=== PATIENT | female | born 1945 | race Caucasian/White ===

== ENCOUNTER 2017-08-18 15:12 | Inpatient (IN) | payer MEDICARE, OTHER ==
[~2017-08-18] VITALS: Ht 157.5 cm; Wt 66.4 kg
[~2017-08-18 15:12] MED LIST: ACYC-202 PO; BUPR150T26 PO; DULO-31 PO; META-25 PO; OMEP-84 PO; OXYC10TA47 PO; ZOLP5TAB8 PO
[2017-08-18] MEDS ORDERED: morphine 4 MG/ML inj SYRINge IM ONE (15:30)
[2017-08-18] MEDS ORDERED: morphine 4 MG/ML inj SYRINge IV ONE (16:35)
[2017-08-18] MEDS ORDERED: potassium Cl 20 mEq SR tablet PO PRN (16:45)
[2017-08-18] MEDS ORDERED: magnesium hydroxide 30ml (MOM) UD suspension PO PRN (16:45)
[2017-08-18] MEDS ORDERED: HYDROcodone/acetaminophen 5mg/325mg tablet PO PRN (16:45)
[2017-08-18] MEDS ORDERED: magnesium 4gm in 100ml NS 100 ML IV PRN (16:45)
[2017-08-18] MEDS ORDERED: morphine 4 MG/ML inj SYRINge IV PRN ×2 (16:45)
[2017-08-18] MEDS ORDERED: mag hydrox/Alum hydrox/simeth 30ml oral suspension PO PRN (16:45)
[2017-08-18] MEDS: K and/or MAG REPLACEMENT MC SCH ×2 (16:45→18:30)
[2017-08-18] MEDS ORDERED: ondansetron/PF 4mg/2ml inj IV PRN (16:45)
[2017-08-18] MEDS ORDERED: magnesium Cl slow-release 64mg tablet PO PRN (16:45)
[2017-08-18] MEDS ORDERED: acetaminophen 325mg tablet PO PRN ×2 (16:45)
[2017-08-18] MEDS ORDERED: potassium Cl 40MEQ/NS 500ml 500 ML IV PRN ×2 (16:45)
[2017-08-18] MEDS ORDERED: magnesium 2GM in 50ml NS 50 ML IV PRN (16:45)
[2017-08-18 16:57] LABS: BASOPHILS % (AUTO) 0.5 % (0-1); EOSINOPHILS # (AUTO) 0.2 X10'3 (0-0.9); EOSINOPHILS % (AUTO) 2.6 % (0-6); HEMATOCRIT 35.3 % (35.0-45.0); HEMOGLOBIN 11.8 g/dl (12.0-16.0); LYMPHOCYTES # (AUTO) 1.1 X10'3 (1.1-4.8); LYMPHOCYTES % (AUTO) 14.3 % (21-51); MEAN CORPUSCULAR HEMOGLOBIN 32.1 PG (27.0-31.0); MEAN CORPUSCULAR HGB CONC 33.6 % (33.0-36.5); MEAN CORPUSCULAR VOLUME 95.7 FL (78-98); MEAN PLATELET VOLUME 6.8 FL (7.4-10.4); MONOCYTES # (AUTO) 0.4 X10'3 (0-0.9); MONOCYTES % (AUTO) 5.1 % (2-12); NEUTROPHILS # (AUTO) 5.9 X10'3 (1.8-7.7); NEUTROPHILS % (AUTO) 77.5 % (42-75); PLATELET COUNT 314 X10'3 (140-440); RED BLOOD COUNT 3.69 X10'6 (4.20-5.60); WHITE BLOOD COUNT 7.6 X10'3 (4.5-11.0)
[2017-08-18 17:06] LABS: PARTIAL THROMBOPLASTIN TIME 26 SECONDS (22-32)
[2017-08-18 17:12] LABS: ALANINE AMINOTRANSFERASE 35 U/L (12-78); ALBUMIN 3.5 G/DL (3.4-5.0); ALBUMIN/GLOBULIN RATIO 1.2 (1.1-1.5); ALKALINE PHOSPHATASE 81 IU/L (46-116); ANION GAP 12 (8-16); ASPARTATE AMINO TRANSFERASE 17 U/L (10-37); BILIRUBIN,TOTAL 0.4 MG/DL (0.1-1.0); BLOOD UREA NITROGEN 21 MG/DL (7-18); BUN/CREATININE RATIO 30.4 (6.6-38.0); CALCIUM 8.8 MG/DL (8.5-10.1); CHLORIDE 102 MMOL/L (99-107); CREATININE 0.69 MG/DL (0.40-0.90); GLUCOSE 93 MG/DL (70-104); POTASSIUM 3.3 MMOL/L (3.5-5.1); SODIUM 138 MMOL/L (135-145); TOTAL CARBON DIOXIDE 24.2 MMOL/L (24-32); TOTAL PROTEIN 6.5 G/DL (6.4-8.2); eGFR 83 ML/MIN
[2017-08-18] MEDS ORDERED: non-formulary drug (Oxycodone Hcl 1 TAB) PO PRN (17:35)
[2017-08-18 18:00] VITALS: BP 126/85
[2017-08-18 18:41] LABS: CLARITY,URINE Clear (Clear); COLOR,URINE Yellow (Yellow); GLUCOSE, URINE Negative (Neg); KETONES,URINE Trace mg/dl (Neg); LEUKOCYTE ESTERASE ,URINE Negative (Neg); NITRITES, URINE Negative (Neg); OCCULT BLOOD,URINE Negative (Neg); PROTEIN,URINE Negative (Neg); UROBILINOGEN,URINE 0.2 E.U/dL (0.2-1.0)
[2017-08-18 18:51] LABS: UA COLLECTION TYPE CLN CATCH MIDSTREAM
[2017-08-18] MEDS: HYDROcodone/acetaminophen 10/325mg tab PO PRN (19:11)
[2017-08-18] MEDS: buPROPion SR 150mg tablet PO SCH (19:41)
[2017-08-18] MEDS ORDERED: buproprion 150mg XL (24-hour) tablet PO SCH (20:00)
[2017-08-18] MEDS: potassium Cl 20 mEq SR tablet PO PRN (20:02)
[2017-08-18] MEDS ORDERED: temazepam 15mg capsule PO PRN (21:00)
[2017-08-18] MEDS: oxyCODONE IR 5mg (immed. release) tablet PO PRN (21:10)
[2017-08-18] MEDS: zolpidem 5mg tablet PO SCH (21:10)
[2017-08-18] MEDS: normal saline 1000ml 1,000 ML IV SCH (21:15)
[2017-08-18 22:00] VITALS: BP 113/74
[2017-08-19] VITALS (16 sets, daily range): BP systolic 108–138; BP diastolic 57–91
[2017-08-19] MEDS: potassium Cl 20 mEq SR tablet PO PRN ×2 (00:28→05:01)
[2017-08-19] MEDS: HYDROcodone/acetaminophen 10/325mg tab PO PRN ×3 (01:46→20:13)
[2017-08-19] MEDS ORDERED: morphine 2 MG/ML inj. syringe IV PRN (03:00)
[2017-08-19] MEDS: morphine 2 MG/ML inj. syringe IV PRN ×2 (03:08→07:49)
[2017-08-19 05:25] LABS: HEMATOCRIT 33.2 % (35.0-45.0); HEMOGLOBIN 11.3 g/dl (12.0-16.0); MEAN CORPUSCULAR HEMOGLOBIN 32.7 PG (27.0-31.0); MEAN CORPUSCULAR HGB CONC 34.2 % (33.0-36.5); MEAN CORPUSCULAR VOLUME 95.7 FL (78-98); PLATELET COUNT 279 X10'3 (140-440); RED BLOOD COUNT 3.47 X10'6 (4.20-5.60); RED CELL DISTRIBUTION WIDTH 13.9 % (11.5-14.5); WHITE BLOOD COUNT 6.8 X10'3 (4.5-11.0)
[2017-08-19] MEDS: oxyCODONE IR 5mg (immed. release) tablet PO PRN ×2 (05:44→20:14)
[2017-08-19 05:57] LABS: ALBUMIN 3.2 G/DL (3.4-5.0); ANION GAP 7 (8-16); BLOOD UREA NITROGEN 15 MG/DL (7-18); BUN/CREATININE RATIO 19.5 (6.6-38.0); CHLORIDE 105 MMOL/L (99-107); CREATININE 0.77 MG/DL (0.40-0.90); GLUCOSE 94 MG/DL (70-104); MAGNESIUM 1.6 MG/DL (1.5-2.4); POTASSIUM 3.6 MMOL/L (3.5-5.1); SODIUM 138 MMOL/L (135-145); TOTAL CARBON DIOXIDE 25.9 MMOL/L (24-32); eGFR 73 ML/MIN
[2017-08-19] MEDS: normal saline 1000ml 1,000 ML IV SCH ×2 (06:59→21:08)
[2017-08-19] MEDS: pantoprazole 40mg Tablet.DR PO SCH (07:10)
[2017-08-19] MEDS: duloxetine 30mg CAPSULE.DR PO SCH (07:10)
[2017-08-19] MEDS: buPROPion SR 150mg tablet PO SCH ×2 (07:10→20:12)
[2017-08-19] MEDS ORDERED: non-formulary drug (Omeprazole* (Prilosec*) 20 MG) PO SCH (08:00)
[2017-08-19] MEDS ORDERED: fentaNYL/PF 50MCG/1 ML 2ML syringe ONE ×2 (09:53→11:17)
[2017-08-19] MEDS ORDERED: midazolam 2 mg/2 ml injection ONE (09:53)
[2017-08-19] MEDS ORDERED: LIDOcaine 2% (20mg/ml) 5ml vial ONE (09:54)
[2017-08-19] MEDS ORDERED: propofol inj 20 ML IV ONE (09:54)
[2017-08-19] MEDS ORDERED: rocuronium 10mg/ml inj IV ONE (09:54)
[2017-08-19] MEDS ORDERED: BUPIVAcaine 0.5% inj/PF 30 ml vial ONE (09:59)
[2017-08-19] MEDS ORDERED: BUPIVAcaine/PF 2.5 mg/ml (0.25%) 30ml vial ONE (09:59)
[2017-08-19] MEDS ORDERED: pneumococcal 23-VAL P-sac vacc 25 mcg/0.5ml vial IMVAC ONE (10:00)
[2017-08-19] MEDS ORDERED: FLU VACC QS2017-18 36MOS UP/PF 60 MCG/0.5 ML SYRINGE IMVAC ONE (10:00)
[2017-08-19] MEDS ORDERED: sevoflurane 250ml liquid IH ONE ×2 (10:05→10:06)
[2017-08-19] MEDS ORDERED: ceFAZolin 1000mg inj ONE ×2 (10:20)
[2017-08-19] MEDS ORDERED: dexamethasone sod phosphate 4mg/ml inj. ONE (10:28)
[2017-08-19] MEDS ORDERED: ringers solution, lacted 1,000 ML IV SCH (10:49)
[2017-08-19] MEDS ORDERED: morphine 4 MG/ML inj SYRINge IV PRN (10:50)
[2017-08-19] MEDS ORDERED: HYDROmorphone inj. 0.5 MG/0.5 ML DISP.SYRIN IV PRN ×2 (10:50)
[2017-08-19] MEDS ORDERED: ondansetron/PF 4mg/2ml inj IV PRN (10:50)
[2017-08-19] MEDS ORDERED: ondansetron/PF 4mg/2ml inj ONE (10:58)
[2017-08-19] MEDS ORDERED: epiNEPHrine 1 mg/ml inj ONE (10:58)
[2017-08-19] MEDS ORDERED: neostigmine methylsulfate 1 MG/ML 10ml vial ONE (10:58)
[2017-08-19] MEDS ORDERED: glycopyrrolate 0.2mg/ml inj ONE (10:58)
[2017-08-19] MEDS: cefazolin 1gm/NS 100mL 100 ML IV SCH (16:09)
[2017-08-19] MEDS: zolpidem 5mg tablet PO SCH (20:12)
[2017-08-20] MEDS: cefazolin 1gm/NS 100mL 100 ML IV SCH (00:22)
[2017-08-20 02:25] VITALS: BP 105/77
[2017-08-20] MEDS: HYDROcodone/acetaminophen 10/325mg tab PO PRN ×3 (05:25→19:30)
[2017-08-20 05:52] LABS: HEMOGLOBIN 11.2 g/dl (12.0-16.0); MEAN CORPUSCULAR HEMOGLOBIN 32.9 PG (27.0-31.0); MEAN CORPUSCULAR HGB CONC 35.1 % (33.0-36.5); MEAN CORPUSCULAR VOLUME 93.7 FL (78-98); MEAN PLATELET VOLUME 6.8 FL (7.4-10.4); PLATELET COUNT 284 X10'3 (140-440); RED BLOOD COUNT 3.41 X10'6 (4.20-5.60); RED CELL DISTRIBUTION WIDTH 14.3 % (11.5-14.5); WHITE BLOOD COUNT 9.3 X10'3 (4.5-11.0)
[2017-08-20 06:26] LABS: ALBUMIN 3.1 G/DL (3.4-5.0); ANION GAP 8 (8-16); BLOOD UREA NITROGEN 15 MG/DL (7-18); BUN/CREATININE RATIO 18.5 (6.6-38.0); CALCIUM 8.7 MG/DL (8.5-10.1); CHLORIDE 107 MMOL/L (99-107); CREATININE 0.81 MG/DL (0.40-0.90); GLUCOSE 115 MG/DL (70-104); MAGNESIUM 1.7 MG/DL (1.5-2.4); POTASSIUM 3.7 MMOL/L (3.5-5.1); SODIUM 142 MMOL/L (135-145); TOTAL CARBON DIOXIDE 27.5 MMOL/L (24-32); eGFR 69 ML/MIN
[2017-08-20 07:04] VITALS: BP 105/77
[2017-08-20] MEDS: pantoprazole 40mg Tablet.DR PO SCH (08:32)
[2017-08-20] MEDS: buPROPion SR 150mg tablet PO SCH ×2 (08:32→20:21)
[2017-08-20] MEDS: duloxetine 30mg CAPSULE.DR PO SCH (08:33)
[2017-08-20] MEDS: oxyCODONE IR 5mg (immed. release) tablet PO PRN ×3 (08:33→22:14)
[2017-08-20] MEDS: K and/or MAG REPLACEMENT MC SCH (09:09)
[2017-08-20] MEDS: normal saline 1000ml 1,000 ML IV SCH (11:35)
[2017-08-20 11:43] VITALS: BP 103/70
[2017-08-20 14:35] VITALS: BP 121/69
[2017-08-20 18:00] VITALS: BP 113/65
[2017-08-20 22:00] VITALS: BP 109/62
[2017-08-20] MEDS: zolpidem 5mg tablet PO SCH (22:13)
[2017-08-21] MEDS: HYDROcodone/acetaminophen 10/325mg tab PO PRN ×2 (01:15→07:44)
[2017-08-21] MEDS: normal saline 1000ml 1,000 ML IV SCH (01:53)
[2017-08-21] MEDS: oxyCODONE IR 5mg (immed. release) tablet PO PRN (05:40)
[2017-08-21 06:00] VITALS: BP 112/66
[2017-08-21 06:26] LABS: HEMATOCRIT 30.9 % (35.0-45.0); HEMOGLOBIN 10.7 g/dl (12.0-16.0); MEAN CORPUSCULAR HEMOGLOBIN 33.1 PG (27.0-31.0); MEAN CORPUSCULAR HGB CONC 34.6 % (33.0-36.5); MEAN CORPUSCULAR VOLUME 95.6 FL (78-98); MEAN PLATELET VOLUME 7.4 FL (7.4-10.4); PLATELET COUNT 249 X10'3 (140-440); RED BLOOD COUNT 3.23 X10'6 (4.20-5.60); RED CELL DISTRIBUTION WIDTH 14.1 % (11.5-14.5); WHITE BLOOD COUNT 7.9 X10'3 (4.5-11.0)
[2017-08-21 06:44] LABS: ALBUMIN 2.9 G/DL (3.4-5.0); ANION GAP 10 (8-16); BLOOD UREA NITROGEN 13 MG/DL (7-18); BUN/CREATININE RATIO 17.6 (6.6-38.0); CALCIUM 8.7 MG/DL (8.5-10.1); CHLORIDE 106 MMOL/L (99-107); CREATININE 0.74 MG/DL (0.40-0.90); GLUCOSE 99 MG/DL (70-104); MAGNESIUM 1.6 MG/DL (1.5-2.4); POTASSIUM 3.5 MMOL/L (3.5-5.1); SODIUM 140 MMOL/L (135-145); TOTAL CARBON DIOXIDE 24.3 MMOL/L (24-32); eGFR 77 ML/MIN
[2017-08-21] MEDS: buPROPion SR 150mg tablet PO SCH (07:43)
[2017-08-21] MEDS: pantoprazole 40mg Tablet.DR PO SCH (07:43)
[2017-08-21] MEDS: duloxetine 30mg CAPSULE.DR PO SCH (07:44)
[2017-08-21] MEDS: K and/or MAG REPLACEMENT MC SCH (07:48)
[2017-08-21] MEDS ORDERED: HYDR-3972 PO (08:11)
[2017-08-21] MEDS ORDERED: oxyCODONE IR 5mg (immed. release) tablet PO PRN (10:10)
== END 2017-08-21 11:45 | disposition home or self-care (01) | DRG 516 ==
LOC: ER 15:13 → ED HOLD 16:41 → EDBEDREQ 17:25 → ORTHO 4S 18:10 → PACU 08-19 09:45 → ORTHO 4S 08-19 12:40
PROVIDERS: ADMIT Family Medicine; ATTEND Orthopaedic Surgery
PROC: 3E0T3BZ Introduction of Anesthetic Agent into Peripheral Nerves and Plexi, Percutaneous Approach (ICD-10-PCS; 2017-08-19)
PROC: 0QSD04Z Reposition Right Patella with Internal Fixation Device, Open Approach (ICD-10-PCS; principal; 2017-08-19 10:06)
DX: S82.031A Displaced transverse fracture of right patella, initial encounter for closed fracture (principal); D62 Acute posthemorrhagic anemia; G62.9 Polyneuropathy, unspecified; W01.198A Fall on same level from slipping, tripping and stumbling with subsequent striking against other object, initial encounter; E87.6 Hypokalemia; F32.9 Major depressive disorder, single episode, unspecified; M54.9 Dorsalgia, unspecified; F41.9 Anxiety disorder, unspecified; S93.402A Sprain of unspecified ligament of left ankle, initial encounter; G89.4 Chronic pain syndrome; M81.0 Age-related osteoporosis without current pathological fracture; K21.9 Gastro-esophageal reflux disease without esophagitis; Z28.21 Immunization not carried out because of patient refusal; Z90.711 Acquired absence of uterus with remaining cervical stump; Z79.899 Other long term (current) drug therapy; Z79.82 Long term (current) use of aspirin; Z87.891 Personal history of nicotine dependence; Y93.89 Activity, other specified; Y92.89 Other specified places as the place of occurrence of the external cause; Y99.8 Other external cause status
CPT/HCPCS: 36415; 71045; 73120; 73560; 73590; 73600; 73610; 73630; 76000; 80048; 80053; 81003; 82948; 83735; 85025; 85027; 85610; 85730; 87070; 93005; 96372; 97116; 97162; 97530; 99285; A4315; A6222; A6449; A7000; C1713; J0171; J0690; J1100; J2001; J2250; J2270; J2405; J2704; J2710; J3010; J3490; J7030; J7120

== ENCOUNTER 2017-11-21 09:35 | Emergency (ER) | payer MEDICARE, OTHER ==
[~2017-11-21] VITALS: Ht 157.5 cm; Wt 61.0 kg
[~2017-11-21 09:35] MED LIST changes: +HYDR-3972 PO
[2017-11-21 09:41] VITALS: BP 137/88
[2017-11-21] MEDS ORDERED: ibuprofen tablet 400 MG TABLET PO ONE (10:35)
== END 2017-11-21 11:22 | disposition home or self-care (01) ==
LOC: ER 09:36
DX: S52.511A Displaced fracture of right radial styloid process, initial encounter for closed fracture (principal); G89.29 Other chronic pain; Z79.899 Other long term (current) drug therapy; W01.0XXA Fall on same level from slipping, tripping and stumbling without subsequent striking against object, initial encounter; Y93.89 Activity, other specified; Y92.89 Other specified places as the place of occurrence of the external cause; Y99.8 Other external cause status
CPT/HCPCS: 73130; 99284; A4565; A6449

== ENCOUNTER 2018-03-14 14:14 | Emergency (ER) | payer MEDICARE, OTHER ==
[~2018-03-14] VITALS: Ht 157.5 cm; Wt 66.8 kg
[2018-03-14 14:17] VITALS: BP 116/80
== END 2018-03-14 16:54 | disposition home or self-care (01) ==
LOC: ER 14:15
DX: K59.00 Constipation, unspecified (principal); G89.29 Other chronic pain; M54.9 Dorsalgia, unspecified; Z90.710 Acquired absence of both cervix and uterus
CPT/HCPCS: 99284

== ENCOUNTER 2019-05-16 04:51 | Emergency (ER) | payer MEDICARE, OTHER ==
[~2019-05-16] VITALS: Ht 157.5 cm; Wt 36.2 kg
[2019-05-16] MEDS ORDERED: OXYC-145 PO (05:21)
[2019-05-16] MEDS ORDERED: DIPH25CA83 PO (05:23)
[2019-05-16] MEDS ORDERED: etomidate 2mg/ml inj. IV ONE (05:30)
[2019-05-16 06:20] VITALS: BP 100/55
== END 2019-05-16 06:37 | disposition home or self-care (01) ==
LOC: ER 04:51
DX: S43.005A Unspecified dislocation of left shoulder joint, initial encounter (principal); G89.29 Other chronic pain; Z90.710 Acquired absence of both cervix and uterus; Z98.890 Other specified postprocedural states; Z79.899 Other long term (current) drug therapy; W01.0XXA Fall on same level from slipping, tripping and stumbling without subsequent striking against object, initial encounter; Y93.89 Activity, other specified; Y92.89 Other specified places as the place of occurrence of the external cause; Y99.8 Other external cause status
CPT/HCPCS: 23650; 73020; 99284

== ENCOUNTER 2019-06-13 15:24 | Outpatient (CLI) | payer MEDICARE, OTHER ==
[~2019-06-13 15:24] MED LIST changes: +DIPH25CA83 PO; -HYDR-3972 PO; -META-25 PO; +OXYC-145 PO; -OXYC10TA47 PO; -ZOLP5TAB8 PO
== END 2019-06-13 16:51 | disposition home or self-care (01) ==
LOC: ORTHO 15:24
PROVIDERS: ATTEND Orthopaedic Surgery
DX: S43.005A Unspecified dislocation of left shoulder joint, initial encounter (principal); M75.92 Shoulder lesion, unspecified, left shoulder; X58.XXXA Exposure to other specified factors, initial encounter; Y93.89 Activity, other specified; Y92.89 Other specified places as the place of occurrence of the external cause; Y99.8 Other external cause status
CPT/HCPCS: 73020; G0463

== ENCOUNTER 2020-01-17 15:16 | Emergency (ER) | payer MEDICARE, OTHER ==
[~2020-01-17] VITALS: Ht 157.5 cm; Wt 65.9 kg
[2020-01-17 15:18] VITALS: BP 133/92
== END 2020-01-17 17:49 | disposition home or self-care (01) ==
LOC: ER 15:17
DX: S80.01XA Contusion of right knee, initial encounter (principal); G89.29 Other chronic pain; Z90.710 Acquired absence of both cervix and uterus; Z98.890 Other specified postprocedural states; Z79.899 Other long term (current) drug therapy; W19.XXXA Unspecified fall, initial encounter; Y93.89 Activity, other specified; Y92.89 Other specified places as the place of occurrence of the external cause; Y99.8 Other external cause status
CPT/HCPCS: 29505; 73140; 73564; 99284

== ENCOUNTER 2022-10-11 07:18 | Emergency (ER) | payer MEDICARE, OTHER ==
[~2022-10-11] VITALS: Ht 157.5 cm; Wt 66.8 kg
[~2022-10-11 07:18] MED LIST changes: +ACYC-129 PO; -ACYC-202 PO
[2022-10-11] MEDS ORDERED: HYDROcodone/acetaminophen 10/325mg tab PO ONE (09:25)
[2022-10-11 11:35] VITALS: BP 132/89
--- NOTE | 2022-10-11 11:39 | NUR ---
PAIN DECREASED FOLLOWING [facility] ADMINISTRATION - TECH WILL BE SLPINTING PT AND DOING CRUTCH TRAINING.
== END 2022-10-11 12:12 | disposition home or self-care (01) ==
LOC: ER 07:19
DX: S82.092A Other fracture of left patella, initial encounter for closed fracture (principal); G89.29 Other chronic pain; M54.9 Dorsalgia, unspecified; W18.39XA Other fall on same level, initial encounter; Y92.89 Other specified places as the place of occurrence of the external cause; Y99.8 Other external cause status; Y93.89 Activity, other specified
CPT/HCPCS: 73564; 73700; 76882; 99284

== ENCOUNTER 2023-07-03 18:09 | Emergency (ER) | payer MEDICARE, OTHER ==
[~2023-07-03] VITALS: Ht 157.5 cm; Wt 65.9 kg
[2023-07-03 18:52] VITALS: BP 136/87; PULSE 77; RESP 18; TEMP 98; O2SAT 96
[2023-07-03] MEDS ORDERED: HYDROcodone/acetaminophen 5mg/325mg tablet PO ONE (22:00)
[2023-07-03] MEDS ORDERED: bacitracin 15gm ointment TP ONE (22:05)
[2023-07-03] MEDS ORDERED: TETanus/Pertussis (Acell)/Diphther VAC/PF (Tdap-Adult) 0.5ml syringe IMVAC ONE (22:05)
[2023-07-03] MEDS ORDERED: HYDR-3965 PO (23:12)
[2023-07-03] MEDS ORDERED: CEPH-585 PO (23:12)
[2023-07-03] MEDS ORDERED: LIDOcaine/epinephrine/tetracaine TOPICAL sol 3 ML syringe TOP ONE (23:25)
== END 2023-07-04 00:30 | disposition home or self-care (01) ==
LOC: ER 18:11
DX: S62.305A Unspecified fracture of fourth metacarpal bone, left hand, initial encounter for closed fracture (principal); S50.02XA Contusion of left elbow, initial encounter; Z79.899 Other long term (current) drug therapy; Z79.2 Long term (current) use of antibiotics; Z90.710 Acquired absence of both cervix and uterus; W19.XXXA Unspecified fall, initial encounter; Y93.89 Activity, other specified; Y92.89 Other specified places as the place of occurrence of the external cause; Y99.8 Other external cause status
CPT/HCPCS: 29125; 73080; 73110; 73130; 90471; 90715; 99284

== ENCOUNTER 2024-07-23 18:52 | Inpatient (IN) | payer MEDICARE, OTHER ==
[~2024-07-23] VITALS: Ht 157.5 cm; Wt 68.2 kg
[2024-07-23] MEDS ORDERED: HYDROcodone/acetaminophen 10/325mg tab PO STA (19:17)
[2024-07-23] MEDS: fentaNYL/PF 50MCG/1 ML 2ML syringe IV ONE (19:20)
[2024-07-23] MEDS ORDERED: HYDR-3964 (19:37)
[2024-07-23] MEDS ORDERED: ZOLP5TAB8 (19:37)
[2024-07-23] MEDS: morphine 4 MG/ML inj SYRINge IV ONE (20:46)
[2024-07-23] MEDS ORDERED: acetaminophen 325mg tablet PO PRN (21:25)
[2024-07-23] MEDS ORDERED: magnesium Cl slow-release 64mg tablet PO PRN (21:25)
[2024-07-23] MEDS ORDERED: potassium Cl 40MEQ/1/2NS 520ml 520 ML IV PRN (21:25)
[2024-07-23] MEDS ORDERED: magnesium hydroxide 30ml (MOM) UD suspension PO PRN (21:25)
[2024-07-23] MEDS ORDERED: magnesium sulf-water 2g/50mL 50 ML IV PRN (21:25)
[2024-07-23] MEDS ORDERED: magnesium sulf-water 4G/100mL 100 ML IV PRN (21:25)
[2024-07-23] MEDS ORDERED: potassium Cl 20 mEq SR tablet PO PRN (21:25)
[2024-07-23] MEDS: normal saline 1000ml 1,000 ML IV SCH (21:44)
[2024-07-23] MEDS: HYDROmorphone inj. 0.5 MG/0.5 ML DISP.SYRIN IV PRN (21:46)
[2024-07-23] MEDS: BUPIVAcaine/PF 7.5 mg/ml (0.75%) 30ml vial IJ ONE (22:00)
[2024-07-23 22:01] LABS: BASOPHILS # (AUTO) 0.1 X10'3 (0-0.2); BASOPHILS % (AUTO) 0.5 % (0-1); EOSINOPHILS # (AUTO) 0.1 X10'3 (0-0.9); EOSINOPHILS % (AUTO) 0.5 % (0-6); HEMATOCRIT 34.7 % (35.0-45.0); HEMOGLOBIN 11.7 g/dl (12.0-16.0); LYMPHOCYTES # (AUTO) 1.1 X10'3 (1.1-4.8); LYMPHOCYTES % (AUTO) 9.3 % (21-51); MEAN CORPUSCULAR HEMOGLOBIN 32.7 PG (27.0-31.0); MEAN CORPUSCULAR HGB CONC 33.9 g/dL (33.0-36.5); MEAN CORPUSCULAR VOLUME 96.5 FL (78-98); MEAN PLATELET VOLUME 6.9 FL (7.4-10.4); MONOCYTES # (AUTO) 0.4 X10'3 (0-0.9); MONOCYTES % (AUTO) 3.3 % (2-12); NEUTROPHILS # (AUTO) 10.3 X10'3 (1.8-7.7); NEUTROPHILS % (AUTO) 86.4 % (42-75); PLATELET COUNT 314 X10'3 (140-440); RED BLOOD COUNT 3.59 X10'6 (4.20-5.60); RED CELL DISTRIBUTION WIDTH 13.1 % (11.5-14.5); WHITE BLOOD COUNT 11.9 X10'3 (4.5-11.0)
[2024-07-23 22:07] LABS: APTT 26 SECONDS (22-32)
[2024-07-23 22:08] LABS: ALANINE AMINOTRANSFERASE 25 U/L (12-78); ALBUMIN 3.8 G/DL (3.4-5.0); ALBUMIN/GLOBULIN RATIO 1.4 (1.1-1.5); ALKALINE PHOSPHATASE 132 IU/L (46-116); ANION GAP 12 (8-16); ASPARTATE AMINO TRANSFERASE 24 U/L (10-37); BILIRUBIN,TOTAL 0.3 MG/DL (0.1-1.0); BLOOD UREA NITROGEN 17 MG/DL (7-18); BUN/CREATININE RATIO 24.3 (10.0-20.0); CALCIUM 8.8 MG/DL (8.5-10.1); CHLORIDE 95 MMOL/L (99-107); GLUCOSE 90 MG/DL (70-104); POTASSIUM 3.1 MMOL/L (3.5-5.1); SODIUM 130 MMOL/L (135-145); TOTAL CARBON DIOXIDE 22.7 MMOL/L (24-32); TOTAL PROTEIN 6.6 G/DL (6.4-8.2); eCRCL 51 ML/MIN; eGFR 81 ML/MIN
[2024-07-23 22:26] LABS: HEMOGLOBIN A1C 5.7 % (4.5-6.2)
[2024-07-23] MEDS: diazepam 5mg tablet PO ONE (23:03)
[2024-07-24] VITALS (17 sets, daily range): BP systolic 101–129; BP diastolic 55–81; PULSE 78–94; RESP 10–21; TEMP 97.7; O2SAT 94–100
[2024-07-24] MEDS: ondansetron/PF 4mg/2ml inj IV PRN (03:08)
[2024-07-24] MEDS: mag hydrox/Alum hydrox/simeth 30ml oral suspension PO PRN (03:08)
[2024-07-24 03:23] LABS: BASOPHILS % (AUTO) 0.4 % (0-1); EOSINOPHILS # (AUTO) 0.1 X10'3 (0-0.9); HEMATOCRIT 32.9 % (35.0-45.0); HEMOGLOBIN 11.2 g/dl (12.0-16.0); LYMPHOCYTES % (AUTO) 9.7 % (21-51); MEAN CORPUSCULAR VOLUME 97.1 FL (78-98); MEAN PLATELET VOLUME 6.5 FL (7.4-10.4); MONOCYTES # (AUTO) 0.6 X10'3 (0-0.9); MONOCYTES % (AUTO) 5.7 % (2-12); NEUTROPHILS # (AUTO) 8.2 X10'3 (1.8-7.7); NEUTROPHILS % (AUTO) 83.2 % (42-75); PLATELET COUNT 285 X10'3 (140-440); RED BLOOD COUNT 3.39 X10'6 (4.20-5.60); RED CELL DISTRIBUTION WIDTH 13.1 % (11.5-14.5); WHITE BLOOD COUNT 9.9 X10'3 (4.5-11.0)
[2024-07-24 03:39] LABS: ALANINE AMINOTRANSFERASE 22 U/L (12-78); ALBUMIN 3.4 G/DL (3.4-5.0); ALBUMIN/GLOBULIN RATIO 1.2 (1.1-1.5); ALKALINE PHOSPHATASE 123 IU/L (46-116); ANION GAP 8 (8-16); ASPARTATE AMINO TRANSFERASE 24 U/L (10-37); BILIRUBIN,TOTAL 0.4 MG/DL (0.1-1.0); BLOOD UREA NITROGEN 17 MG/DL (7-18); BUN/CREATININE RATIO 27.4 (10.0-20.0); CALCIUM 8.1 MG/DL (8.5-10.1); CHLORIDE 96 MMOL/L (99-107); CHOL/HDL RATIO 2.1 (0.00-4.99); CHOLESTEROL 157 MG/DL (0-200); CREATININE 0.62 MG/DL (0.40-0.90); GLUCOSE 108 MG/DL (70-104); HDL CHOLESTEROL 76 MG/DL (35-60); LDL CHOLESTEROL 69 MG/DL (50-100); MAGNESIUM 1.8 MG/DL (1.5-2.4); POTASSIUM 3.4 MMOL/L (3.5-5.1); SODIUM 129 MMOL/L (135-145); TOTAL PROTEIN 6.2 G/DL (6.4-8.2); TRIGLYCERIDES 39 MG/DL (20-135); eCRCL 57 ML/MIN; eGFR > 90 ML/MIN
[2024-07-24] MEDS: zolpidem 5mg tablet PO ONE (03:56)
[2024-07-24] MEDS: K and/or MAG REPLACEMENT MC SCH (08:00)
[2024-07-24] MEDS: potassium Cl 20 mEq SR tablet PO PRN (08:24)
[2024-07-24] MEDS: docusate sod 100mg capsule PO SCH (08:25)
[2024-07-24] MEDS: duloxetine 30mg CAPSULE.DR PO SCH (08:25)
[2024-07-24] MEDS: BUPROPION HCL 150MG XL 24 HR 150 MG TAB PO SCH (08:25)
[2024-07-24] MEDS: pantoprazole 40mg Tablet.DR PO SCH (08:26)
[2024-07-24 09:10] LABS: OSMOLALITY 266 MOSM/K (280-300)
[2024-07-24] MEDS: HYDROcodone/acetaminophen 10/325mg tab PO PRN (10:35)
[2024-07-24 16:19] LABS: OSMOLALITY UA 252 MOSM/K (50-1400)
[2024-07-24] MEDS ORDERED: morphine 4 MG/ML inj SYRINge IV PRN (16:30)
[2024-07-24] MEDS ORDERED: enalaprilat 1.25mg/ml 2ml vial IV PRN (16:30)
[2024-07-24] MEDS ORDERED: labetalol 20mg/4ml (5mg/ml) syringe IV PRN (16:30)
[2024-07-24] MEDS ORDERED: morphine 2 MG/ML inj. syringe IV PRN (16:30)
[2024-07-24] MEDS ORDERED: meperidine/PF 25mg/ml syringe IV PRN ×3 (16:30)
[2024-07-24] MEDS ORDERED: proCHLORperazine 10 MG/2 ml inj IV PRN (16:30)
[2024-07-24] MEDS ORDERED: ondansetron/PF 4mg/2ml inj IV PRN (16:30)
[2024-07-24] MEDS: ringers solution, lacted 1,000 ML IV SCH (16:30)
[2024-07-24] MEDS: fentaNYL/PF 50MCG/1 ML 2ML syringe IV ONE (16:35)
[2024-07-24] MEDS ORDERED: vancomycin 1,000mg inj ONE (16:39)
[2024-07-24] MEDS ORDERED: ceFAZolin 2gm in dextrose, iso 2,000 MG/50 ML BAG IV ONE (16:42)
[2024-07-24 16:50] LABS: SODIUM,URINE RANDOM 54 MEQ/L
[2024-07-24] MEDS ORDERED: BUPIVAcaine 0.5% inj/PF 30 ML ONE (16:51)
[2024-07-24] MEDS ORDERED: BUPIVACAINE liposomal/PF 13.3 MG/ML 10mL vial IM ONE (16:51)
[2024-07-24] MEDS ORDERED: midazolam 1 mg/ML 2ml injection ONE (16:56)
[2024-07-24] MEDS: vancomycin/NS 1 GM ADD-VANTAGE 250 ML X 1 DOSE IV ONE (17:35)
[2024-07-24 20:32] LABS: ISTAT CREATININE 0.7 mg/dL (0.6-1.1); ISTAT HGB 9.2 g/dl (12.0-16.0); ISTAT IONIZED CALCIUM 1.18 mmol/L (1.03-1.32); ISTAT K 4.3 mmol/L (3.5-5.1); POC BUN/CREATININE RATIO 18.6 (6.6-38.0)
[2024-07-25] VITALS (10 sets, daily range): BP systolic 91–120; BP diastolic 51–67; PULSE 78–105; RESP 13–19; TEMP 97.6–98.3; O2SAT 96–99
[2024-07-25] MEDS: potassium Cl 20mEq in NS 1,000 ML IV SCH (04:07)
[2024-07-25 06:42] LABS: BASOPHILS % (AUTO) 0.1 % (0-1); EOSINOPHILS % (AUTO) 0 % (0-6); HEMOGLOBIN 9.8 g/dl (12.0-16.0); LYMPHOCYTES # (AUTO) 0.5 X10'3 (1.1-4.8); LYMPHOCYTES % (AUTO) 5.9 % (21-51); MEAN CORPUSCULAR HEMOGLOBIN 33.6 PG (27.0-31.0); MEAN CORPUSCULAR HGB CONC 33.7 g/dL (33.0-36.5); MEAN CORPUSCULAR VOLUME 99.6 FL (78-98); MEAN PLATELET VOLUME 7.5 FL (7.4-10.4); MONOCYTES # (AUTO) 0.6 X10'3 (0-0.9); MONOCYTES % (AUTO) 7.1 % (2-12); NEUTROPHILS # (AUTO) 7.2 X10'3 (1.8-7.7); NEUTROPHILS % (AUTO) 86.9 % (42-75); PLATELET COUNT 223 X10'3 (140-440); RED BLOOD COUNT 2.91 X10'6 (4.20-5.60); RED CELL DISTRIBUTION WIDTH 13.5 % (11.5-14.5); WHITE BLOOD COUNT 8.3 X10'3 (4.5-11.0)
[2024-07-25 06:53] LABS: ALANINE AMINOTRANSFERASE 21 U/L (12-78); ALBUMIN/GLOBULIN RATIO 1.1 (1.1-1.5); ALKALINE PHOSPHATASE 109 IU/L (46-116); ANION GAP 8 (8-16); ASPARTATE AMINO TRANSFERASE 17 U/L (10-37); BILIRUBIN,TOTAL 0.4 MG/DL (0.1-1.0); BLOOD UREA NITROGEN 12 MG/DL (7-18); BUN/CREATININE RATIO 21.1 (10.0-20.0); CALCIUM 7.8 MG/DL (8.5-10.1); CHLORIDE 103 MMOL/L (99-107); CREATININE 0.57 MG/DL (0.40-0.90); GLUCOSE 108 MG/DL (70-104); MAGNESIUM 2.1 MG/DL (1.5-2.4); POTASSIUM 4.3 MMOL/L (3.5-5.1); SODIUM 134 MMOL/L (135-145); TOTAL CARBON DIOXIDE 23.4 MMOL/L (24-32); TOTAL PROTEIN 5.8 G/DL (6.4-8.2); eCRCL 62 ML/MIN; eGFR > 90 ML/MIN
[2024-07-25] MEDS: enoxaparin 40mg/0.4ml syringe SUBCUT SCH (07:37)
[2024-07-25] MEDS: JUVEN Smoothie Arginine/Glut./Ca2+Bmb (Juven 19.3pkt) 240ml cup PO SCH (12:54)
[2024-07-25] MEDS: normal saline 1000ml 1,000 ML IV ONE (17:21)
[2024-07-25] MEDS ORDERED: heparin, porcine 5000 units/ml vial SQ SCH (20:00)
[2024-07-25] MEDS: zolpidem 5mg tablet PO PRN (22:19)
[2024-07-26 07:46] LABS: ALANINE AMINOTRANSFERASE 23 U/L (12-78); ALBUMIN 2.5 G/DL (3.4-5.0); ALKALINE PHOSPHATASE 92 IU/L (46-116); ANION GAP 10 (8-16); ASPARTATE AMINO TRANSFERASE 22 U/L (10-37); BILIRUBIN,TOTAL 0.3 MG/DL (0.1-1.0); BLOOD UREA NITROGEN 16 MG/DL (7-18); BUN/CREATININE RATIO 22.9 (10.0-20.0); CALCIUM 7.8 MG/DL (8.5-10.1); CHLORIDE 108 MMOL/L (99-107); GLUCOSE 105 MG/DL (70-104); MAGNESIUM 1.8 MG/DL (1.5-2.4); POTASSIUM 4.3 MMOL/L (3.5-5.1); SODIUM 137 MMOL/L (135-145); TOTAL PROTEIN 5.1 G/DL (6.4-8.2); eCRCL 51 ML/MIN; eGFR 81 ML/MIN
[2024-07-26 08:00] VITALS: RESP 13; O2SAT 93
[2024-07-26 08:38] LABS: BASOPHILS % (AUTO) 0.6 % (0-1); EOSINOPHILS # (AUTO) 0.1 X10'3 (0-0.9); EOSINOPHILS % (AUTO) 2.1 % (0-6); HEMOGLOBIN 7.2 g/dl (12.0-16.0); LYMPHOCYTES % (AUTO) 17.5 % (21-51); MEAN CORPUSCULAR HEMOGLOBIN 33.5 PG (27.0-31.0); MEAN CORPUSCULAR HGB CONC 33.7 g/dL (33.0-36.5); MEAN CORPUSCULAR VOLUME 99.5 FL (78-98); MEAN PLATELET VOLUME 7.1 FL (7.4-10.4); MONOCYTES # (AUTO) 0.7 X10'3 (0-0.9); NEUTROPHILS # (AUTO) 3.7 X10'3 (1.8-7.7); NEUTROPHILS % (AUTO) 67.8 % (42-75); PLATELET COUNT 196 X10'3 (140-440); RED BLOOD COUNT 2.15 X10'6 (4.20-5.60); RED CELL DISTRIBUTION WIDTH 13.7 % (11.5-14.5); WHITE BLOOD COUNT 5.5 X10'3 (4.5-11.0)
[2024-07-26 08:53] LABS: HEMATOCRIT 21.4 % (35.0-45.0)
[2024-07-26 12:47] VITALS: BP 113/54; PULSE 94; RESP 16; TEMP 98.7
[2024-07-26 13:07] VITALS: BP 126/75; PULSE 102; RESP 18; TEMP 97.8
[2024-07-26 14:08] VITALS: BP 132/72; PULSE 86; RESP 16; TEMP 98.5
[2024-07-26 15:29] VITALS: BP 103/55; PULSE 96; RESP 16; TEMP 98.1
[2024-07-26 16:10] VITALS: RESP 16
== END 2024-07-26 17:10 | DRG 481 ==
LOC: ER 18:53 → ED HOLD 21:28 → ORTHO 4S 07-24 07:25
PROVIDERS: ADMIT Surgery Surgical Critical Care; ATTEND Family Medicine
PROC: 3E0T3BZ Introduction of Anesthetic Agent into Peripheral Nerves and Plexi, Percutaneous Approach (ICD-10-PCS; 2024-07-23)
PROC: 0QSC04Z Reposition Left Lower Femur with Internal Fixation Device, Open Approach (ICD-10-PCS; principal; 2024-07-24 16:42)
DX: M80.852A Other osteoporosis with current pathological fracture, left femur, initial encounter for fracture (principal); E87.1 Hypo-osmolality and hyponatremia; G62.9 Polyneuropathy, unspecified; E87.6 Hypokalemia; G89.4 Chronic pain syndrome; Z96.641 Presence of right artificial hip joint; Z98.1 Arthrodesis status; Z90.710 Acquired absence of both cervix and uterus; Z79.899 Other long term (current) drug therapy; Z88.8 Allergy status to other drugs, medicaments and biological substances; Z90.49 Acquired absence of other specified parts of digestive tract
CPT/HCPCS: 36415; 36430; 64450; 71045; 73552; 73564; 73590; 76000; 80047; 80053; 80061; 82948; 83036; 83735; 83930; 83935; 84295; 84300; 85025; 85610; 85730; 86885; 86900; 86901; 86920; 87081; 93005; 97161; 97530; 99285; A4615; A4618; A6253; A6258; A6446; A6449; A7000; C1713; C1758; G0378; J0666; J0690; J1100; J1171; J1650; J2003; J2250; J2270; J2405; J2704; J3010; J3370; J3480; J3490; J7030; J7040; J7042; J7120; P9016